=== PATIENT | female | born 1985 | race Caucasian/White ===

== ENCOUNTER 2017-08-19 13:30 | Inpatient (IN) | payer OTHER ==
[~2017-08-19] VITALS: Ht 160 cm; Wt 70.8 kg
[2017-09-08] MEDS ORDERED: PRENATAL TABLE1 EAC1 PO (09:08)
== END 2017-09-10 13:17 | disposition home or self-care (01) | DRG 775 ==
LOC: OB/GYN 09-08 06:35 → LDR 09-08 06:35 → OB/GYN 09-08 22:47
PROC: 10E0XZZ Delivery of Products of Conception, External Approach (ICD-10-PCS; principal; 2017-09-08)
PROC: 0W8NXZZ Division of Female Perineum, External Approach (ICD-10-PCS; 2017-09-08)
PROC: 3E033VJ Introduction of Other Hormone into Peripheral Vein, Percutaneous Approach (ICD-10-PCS; 2017-09-08)
PROC: 10907ZC Drainage of Amniotic Fluid, Therapeutic from Products of Conception, Via Natural or Artificial Opening (ICD-10-PCS; 2017-09-08)
PROC: 4A1HXCZ Monitoring of Products of Conception, Cardiac Rate, External Approach (ICD-10-PCS; 2017-09-08)
PROC: 4A033R1 Measurement of Arterial Saturation, Peripheral, Percutaneous Approach (ICD-10-PCS; 2017-09-08)
DX: O41.03X0 Oligohydramnios, third trimester, not applicable or unspecified (principal); Z3A.39 39 weeks gestation of pregnancy; Z37.0 Single live birth

== ENCOUNTER 2021-11-25 23:57 | Inpatient (IN) | payer OTHER ==
[~2021-11-25] VITALS: Ht 160 cm; Wt 0.9 kg
[~2021-11-25 23:57] MED LIST: PRENATAL TABLE1 EAC1 PO
[2021-11-26] MEDS ORDERED: IRON236 MG (04:44)
[2021-11-26] MEDS ORDERED: CHILDREN'S ASPI81 MG (04:44)
== END 2021-11-28 19:08 | disposition home or self-care (01) | DRG 805 ==
LOC: SURG-SUITE 23:57 → LDR 23:57 → SURG-SUITE 11-26 17:37
PROVIDERS: ADMIT Specialist; ATTEND Specialist
PROC: 10E0XZZ Delivery of Products of Conception, External Approach (ICD-10-PCS; principal; 2021-11-25)
PROC: 4A1HXCZ Monitoring of Products of Conception, Cardiac Rate, External Approach (ICD-10-PCS; 2021-11-25)
DX: O60.14X0 Preterm labor third trimester with preterm delivery third trimester, not applicable or unspecified (principal); O41.1230 Chorioamnionitis, third trimester, not applicable or unspecified; Z37.0 Single live birth; Z3A.29 29 weeks gestation of pregnancy; Z20.822 Contact with and (suspected) exposure to COVID-19

== ENCOUNTER 2021-12-01 23:03 | Emergency (ER) | payer OTHER ==
[~2021-12-01] VITALS: Ht 160 cm; Wt 60.3 kg
[~2021-12-01 23:03] MED LIST changes: +CHILDREN'S ASPI81 MG; +IRON236 MG
== END 2021-12-02 04:04 | disposition home or self-care (01) ==
LOC: ER 23:03
DX: N93.9 Abnormal uterine and vaginal bleeding, unspecified (principal)